=== PATIENT | female | born 1980 | race Hispanic/Latino ===

== ENCOUNTER 2022-10-16 13:46 | Emergency (ER) | payer OTHER, SELFPAY | END 2022-10-16 14:59 | disposition home or self-care (01) | LOC: NAV ERS 13:46 | DX: S52.571A Other intraarticular fracture of lower end of right radius, initial encounter for closed fracture (principal); W01.0XXA Fall on same level from slipping, tripping and stumbling without subsequent striking against object, initial encounter | CPT/HCPCS: 29125 ==